=== PATIENT | male | born 1995 | race Caucasian/White ===

== ENCOUNTER 2025-05-05 21:03 | Emergency (ER) | payer MEDICAID, SELFPAY ==
[2025-05-05 21:04] VITALS: BP 176/99; PULSE 100; RESP 16; TEMP 36.8; O2SAT 99; BMI 38.1
--- NOTE | 2025-05-05 21:24 | EDS_ITS ---
HPI HPI - Psych History of Present Illness Chief Complaint: Mental Health Narrative Narrative: 29-year-old male past medical history of bipolar schizoaffective disorder presents with suicidal thoughts but no active plan. He relates history that he and his nurse practitioner had weaned him off of his psychiatric medications last year. The last he took them was at the end of last year and has not taken any all this year. The plan was for him to get back on them again, but he states obviously he has not started taking them. He states that he has multiple life stressors and that his dog is dying, and that he has a lot going on. He was brought to the emergency department by his mother because of the increasing thoughts of suicide although he states he would never act on them. He states that he is having mental health problems and wants help. He denies any hallucinations, no exacerbating or alleviating factors. PFSH PFS Medical History Schizo affective schizophrenia Bipolar 1 disorder Depression Home Medications ?Medication ?Instructions ?Recorded ?Last Taken ?Type hydroxyzine HCl 50 mg tablet 150 mg PO DAILY PRN anxie ty 05/05/25 Unknown History Allergy/AdvReac Type Severity Reaction Status Date / Time No Known Allergies Allergy Verified 05/05/25 21:08 Family History no significant family his Social History Smoking Status: Current every day smoker tobacco type: cigarettes ROS ROS ED ROS Narrative Review of systems positive for depression and suicidal ideation but no plan. Multiple life stressors. Denies any somatic complaints. EXAM Physical Exam Narrative Exam Narrative: Afebrile. Vital signs noted. Nontoxic-appearing. Cardiovascular examination regular rate and rhythm. Lungs are clear to auscultation bilaterally. Abdomen is soft and nontender with positive bowel sounds. Neurological examination nonfocal, nonlateralizing. Psychiatric examination shows slightly flat affect, no active hallucinations or internal stimulation. States has suicidal thoughts, but would not act on them. Const Vital Signs: 05/05/25 21:04 05/05/25 22:04 Temperature 98.3 F Temperature Source Oral Pulse Rate 100 95 Respiratory Rate 16 18 Blood Pressure 176/99 H 153/102 H Blood Pressure Mean 124 119 Pulse Ox 99 97 Oxygen Delivery Method Room Air Room Air MDM MDM MDM Narrative Medical decision making narrative: I do not feel differential diagnosis is applicable. Patient presents with what he calls a mental health crisis. While he is not entirely agreeable to placement, he is strongly considering it. He knows he needs to be on his medications. Medical screening labs will be obtained and reviewed. Once he is medically cleared, he will be evaluated by the crisis counselor. He states that [facility] I reviewed his laboratory work, he has slightly elevated white count of 12.0 which I think is nonspecific, hemoglobin 16.6, hematocrit 48.5, platelet count 281. CMP is grossly unremarkable with exception of slightly elevated AST of 49 and ALT of 65, glucose normal at 98. Urine for drugs of abuse is positive for cannabinoids which she admits to using on occasion, ethyl alcohol is negative at less than 10.1. At this point in time, I do feel he is medically cleared for evaluation by the mental health crisis counselor. He did ask the RN for as needed hydroxyzine 50 mg capsule for anxiety as he admits that he used to be on this. His disposition is pending mental health/crisis counselor evaluation. Patient will be signed out to the oncoming physician Dr. Dennis to make final disposition and discussion with the mental health counselor. Patient is in stable condition. History & Record Review Discussion w/independent historian: Patient Additional record(s) reviewed:: No prior records (No prior ED visits at this facility) Lab Data Attestation: I reviewed the patient's lab results. Labs: Laboratory Results - last 24 hr 05/05/25 21:44 WBC 12.0 H RBC 5.56 Hgb 16.6 H Hct 48.5 MCV 87.2 MCH 29.9 MCHC 34.2 RDW Std Deviation 40.3 RDW Coeff of Alphonso 12.7 Plt Count 281 MPV 10.4 Immature Gran % (Auto) 0.300 Neut % (Auto) 59.6 Lymph % (Auto) 29.5 [place] % (Auto) 4.5 Eos % (Auto) 5.2 H Baso % (Auto) 0.9 Absolute Neuts (auto) 7.1 Absolute Lymphs (auto) 3.53 Nucleated RBC % 0 Sodium 140 Potassium 3.8 Chloride 104 Carbon Dioxide 23.4 Anion Gap 12 BUN 9 Creatinine 1.20 Estim Creat Clear Calc 127.79 Est GFR (MDRD) Non-Af 83 BUN/Creatinine Ratio 7.9 L Glucose 98 Calcium 9.2 Total Bilirubin 0.64 AST 49 H ALT 65 H Alkaline Phosphatase 64 Total Protein 7.5 Albumin 4.6 Globulin 2.9 Albumin/Globulin Ratio 1.6 Urine Opiates Screen NEGATIVE U Buprenorphine Qual NEGATIVE Ur Oxycodone Screen NEGATIVE Urine Methadone Screen NEGATIVE Urine Fentanyl Screen NEGATIVE Ur Barbiturates Screen NEGATIVE Ur Phencyclidine Scrn NEGATIVE Ur Amphetamines Screen NEGATIVE U Benzodiazepines Scrn NEGATIVE Urine Cocaine Screen NEGATIVE U Cannabinoids Screen PRESUMPTIVE POSITIVE Ethyl Alcohol < 10.1 Discharge Plan Triage Chief Complaint: Mental Health ED Provider: Suhas Oleary Dx/Rx/DC Orders Clinical Impression: Suicidal ideations, Depression, Bipolar disorder, Schizoaffective disorder Prescriptions: No Action hydroxyzine HCl 50 mg tablet 150 mg PO DAILY PRN (Reason: anxiety) Primary Care Provider: Care Physician,No Primary Print Language: Burmese
[2025-05-05 22:04] VITALS: BP 153/102; PULSE 95; RESP 18; O2SAT 97
[2025-05-05 22:11] LABS: Hematocrit 48.5 % (40-54); Hemoglobin 16.6 g/dL (13.0-16.5); Immature Granulocytes Count 0.030 X10^3/uL (0.0-0.0); Mean Corp Hgb Conc 34.2 g/dL (32-36); Mean Corpuscular Volume 87.2 fL (80-94); Mean Platelet Vol. 10.4 fl (6.2-12.0); NRBC Flagged by Analyzer 0 % (0-5); Platelet Count 281 K/mm3 (150-450); RBC Distribution Width CV 12.7 % (11.6-14.6); RBC Distribution Width SD 40.3 fl (35.1-43.9); Red Blood Count 5.56 M/mm3 (4.6-6.2); White Blood Count 12.0 K/mm3 (4.4-11.0)
[2025-05-05 22:24] LABS: Alcohol, Blood (Medical)-Serum < 10.1 mg/dL (<=10.0)
[2025-05-05 22:25] LABS: AST(SGOT) 49 U/L (<=37); Alanine Aminotransfer ALT/SGPT 65 U/L (<=46); Albumin, Serum 4.6 g/dL (3.5-5.0); Alkaline Phosphatase 64 U/L (40-129); Anion Gap 12 (5-15); BUN 9 mg/dL (4-19); BUN/Creat Ratio 7.9 RATIO (10-20); Barbiturate Urine NEGATIVE (< 200 ng/mL); Benzodiazepine Urine NEGATIVE (< 200 ng/mL); Calcium,Total 9.2 mg/dL (7.6-11.0); Carbon Dioxide 23.4 mmol/L (21.0-32.0); Chloride 104 mmol/L (98-108); Estimated Creatinine Clearance 127.79 ml/min (50-250); Globulin 2.9 g/dL (2.2-4.2); Glucose 98 mg/dL (70-99); PCP Urine NEGATIVE (< 25 ng/mL); Potassium 3.8 mmol/L (3.3-5.1); THC Urine PRESUMPTIVE POSITIVE (< 50 ng/mL)
[2025-05-06 02:08] VITALS: BP 156/97; PULSE 78; RESP 18; TEMP 36.8; O2SAT 98
== END 2025-05-06 02:10 | disposition home or self-care (01) ==
PROVIDERS: Emergency Provider Emergency Medicine; Visit Provider Emergency Medicine
DX: R45.851 Suicidal ideations (principal); F25.9 Schizoaffective disorder, unspecified; F31.9 Bipolar disorder, unspecified; F17.210 Nicotine dependence, cigarettes, uncomplicated
CPT/HCPCS: 80053; 80307; 82077; 85025; 99285